=== PATIENT | male | born 1985 | race Caucasian/White ===

== ENCOUNTER → 2016-11-29 | Emergency (ER) | payer OTHER ==
[~2016-11-29] VITALS: Ht 172.7 cm; Wt 76.2 kg
[~2016-11-29] MED LIST: ISOVUE-370 76% 100ML VIAL (Q9967) As Ordered ONE; LORazepam 2 MG/ML VIAL (J2060) IV STA; NS 1,000 ML IV ONE; PRED20TA PO; SUBO8TA PO; TETANUS/DIPHTHERIA TOX ADSORB ADULT 0.5ML SYR/VIAL (90714) IM ONE; [UNRECOGNIZED DRUG - CODE] PO; ceFAZolin SOD 1 GM in D5W MINI-BAG PLUS 50 ML IV ONE
[2016-11-29 21:24] LABS: BASO % 0.6 % (0.0-1.0); EOS # 0.2 K/mm3 (0.0-0.50); EOS % 2.8 % (0.0-3.0); LARGE UNSTAINED CELL # 0.1 K/mm3 (0.0-0.4); LYMPH # 2.8 K/mm3 (1.5-4.5); LYMPH % 37.9 % (24.0-44.0); MEAN CORPUSCULAR HEMOGLOBIN 30.3 pg (27.0-33.0); MEAN CORPUSCULAR HGB CONC 35.6 g/dl (32.0-36.5); MEAN CORPUSCULAR VOLUME 85.3 fl (80.0-96.0); MONO # 0.4 K/mm3 (0.0-0.8); MONO % 5.5 % (0.0-5.0); NEUTROPHILS # 3.7 K/mm3 (1.8-7.7); NEUTROPHILS % 51.1 % (36.0-66.0); PLATELET COUNT, AUTOMATED 179 k/mm3 (150-450); RED CELL DISTRIBUTION WIDTH 12.3 % (11.5-14.5); WHITE BLOOD COUNT 7.2 K/mm3 (4.0-10.0)
[2016-11-29 21:30] LABS: INR 0.99
[2016-11-29 21:52] LABS: ANION GAP 12 MEQ/L (8-16); BLOOD UREA NITROGEN 21 MG/DL (7-18); CALCIUM LEVEL 8.5 MG/DL (8.5-10.1); CARBON DIOXIDE LEVEL 27 MEQ/L (21-32); CHLORIDE LEVEL 99 MEQ/L (98-107); GLOMERULAR FILTRATION RATE > 60.0 (>60); GLUCOSE, FASTING 110 MG/DL (70-105); POTASSIUM SERUM 3.5 MEQ/L (3.5-5.1); SODIUM LEVEL 138 MEQ/L (136-145)
--- NOTE | 2016-11-29 22:10 | REPUSA ---
CT of the cervical spine Clinical history: trauma. Technique: Multiple axial CT images were obtained through the cervical spine without administration o f contrast. Coronal and sagittal 3-D reconstructed images were also obtained. Comparison: None. Findings: The cervical vertebral bodies are in satisfactory positioning and alignment. No fractures or dislocat ions are demonstrated. The odontoid process is intact. Intervertebral disc spaces are well-maintained . There is no evidence of facet subluxation. The neural foramen appear grossly patent. The cervical c ranial junction is intact. The cervical spinal canal demonstrates normal caliber and contour without evidence of spinal stenosis. The surrounding soft tissues are within normal limits. Impression: Unremarkable CT examination of the cervical spine.
--- NOTE | 2016-11-29 22:10 | REPUSA ---
CT angiogram of the chest Clinical statement: trauma. Technique: Multiple axial CT images were obtained from the thoracic inlet through the upper abdomen a fter a bolus administration of nonionic intravenous contrast. Coronal and sagittal reconstructions we re also obtained. No comparison is available. Findings: The pulmonary arteries are well-opacified with contrast, with no intraluminal filling defec ts to suggest embolism. The thoracic aorta is unremarkable. Thyroid gland is within normal limits. Th ere is no thoracic lymphadenopathy. There are no pericardial or pleural effusions. The lungs are terence r. Limited imaging of the upper abdomen demonstrates severe diffuse low attenuation of the hepatic pa renchyma. There are no suspicious osseous lesions. Impression: 1. No evidence of pulmonary embolism. No acute intrapulmonary disease. 2. Diffuse fatty infiltration of the liver.
--- NOTE | 2016-11-29 22:20 | REPUSA ---
CT of the facial bones without contrast Clinical history: Pain, trauma. Technique: Multiple axial CT images were obtained through the facial bones and paranasal sinuses util izing 3 mm axial slices without administration of contrast. Coronal and sagittal reconstructions were also obtained. Findings: There is a left taoism a bone fracture demonstrated, with very tiny amount of pneumocephalu s. The fracture extends anterior to the internal auditory canal within the left temporal bone mild so ft tissue emphysema in the left maxillary space is noted. The visualized paranasal sinuses are clear. The osteomeatal complexes are patent bilaterally. The nasal septum is slightly deviated leftward. Th e visualized mastoid air cells are clear. The superficial soft tissues are within normal limits. Impression: Acute, nondepressed left temporal bone fracture, associated with a tiny amount of pneumoc ephalus. The fracture extends inferiorly, anterior to the internal auditory canal. The mastoid air ce lls and left carotid canal do not appear to be involved. Soft tissue emphysema is noted in the left m axillary space as well. ER physician was notified of these findings at 10:14 PM on 11/29/2016.
--- NOTE | 2016-11-29 22:20 | REPUSA ---
CT of the head Clinical history: Headache. Trauma. Technique: Multiple axial CT images were obtained through the head without administration of contrast . Findings: The ventricles and sulci are symmetric bilaterally. There is no evidence of acute hemorrhag e or infarct. There is no midline shift, mass effect, or extra-axial fluid collection. There is a carlee ear, nondepressed left temporal bone fracture noted. A tiny amount of pneumocephalus is noted in the upper left temporal bone. The fracture extends inferiorly, just anterior to the internal auditory can al. The visualized paranasal sinuses and mastoid air cells are clear. Impression: 1. Left temporal bone fracture as described. 2. No acute hemorrhage or infarct was identified. ER physician was notified of these findings at 10:14 PM on 11/29/2016.
--- NOTE | 2016-11-29 22:20 | REPUSA ---
CT of the abdomen and pelvis with contrast Clinical statement: Pain. Trauma. Technique: Multiple axial CT images were obtained from the base of the lungs through the floor of the pelvis utilizing 5 mm axial slices after administration of nonionic intravenous contrast. Coronal an d sagittal reconstructions were also obtained. No comparison is available. Findings: Chest: The visualized lung bases are clear. Abdomen: The spleen, pancreas, kidneys, gallbladder, and adrenal glands are unremarkable. There is di ffuse low attenuation of the hepatic parenchyma. The aorta is within normal limits. There is no evide nce of abdominal lymphadenopathy or ascites. Pelvis: The bowel is unremarkable, with no obstructive or inflammatory changes. The appendix is haley l. The urinary bladder is within normal limits. The other pelvic structures appear grossly intact. Th ere is no evidence of pelvic lymphadenopathy or ascites. Bones: There are no suspicious osseous abnormalities seen. Impression: No acute traumatic injury appreciated. Diffuse fatty infiltration of the liver.
[2016-11-29] MEDS: HYDROmorphone HCL 1 MG/ML SYRINGE (J1170) IV PRN ×2 (22:30→23:08)
[2016-11-29 22:45] VITALS: BP 173/93
[2016-11-29 22:57] LABS: METHADONE URINE NEGATIVE (NEGATIVE)
--- NOTE | 2016-11-30 06:20 | ECGEPIP ---
Stationary ECG Study [facility] - ED Test Date: 2016-11-29 Pat Name: STEVEN MALDONADO Department: Room: - Gender: M Database Consultant: kary : 1985 Requested By: JUANA Horvath Order Number: [id number] Reading MD: Isaias Sarmiento Measurements Intervals [place] Rate: 96 P: 5 ID: [id number] QRS: -14 QRSD: 106 T: -10 QT: 336 QTc: 425 Interpretive Statements SINUS RHYTHM MODERATE VOLTAGE CRITERIA FOR LVH, CONSIDER NORMAL VARIANT NSTTW ABNORMALITIES NOP RIORS Electronically Signed On 11-30-2016 6:20:09 EDT by Isaias Sarmiento
--- NOTE | 2016-11-30 07:33 | REP ---
AP PELVIS: 11/29/2016. Clinical history: Trauma. Comparison: Right hip 01/16/2007, CT abdomen and pelvis earlier this date. Findings: Pelvic bones show the iliac wings, acetabuli, pubic rami, symphysis pubis and hips unremarkable. SI joints, sacral ala intact. Lower lumbar spine grossly intact. Bladder partially filled with IV contrast from CT. No evidence of extravasation. Impression: 1. Negative AP pelvis. Signed by Carlos Hoff MD 11/30/2016 04:38 P
--- NOTE | 2016-11-30 07:37 | REP ---
AP PORTABLE CHEST: 11/29/2016 COMPARISON: CT chest earlier this date. PA chest with left rib series 04/25/2016. CLINICAL HISTORY: Trauma. FINDINGS: Portable semi-erect chest shows the lungs hypoinflated. There is an old healed and remodeled posterior left 7th rib fracture as seen on the left rib series in 2015. The lung hernandez show no definite infiltrate, effusion or pneumothorax. Heart and mediastinal contours are normal for this degree of inflation and portable technique. No effusion or pneumothorax. No lateral pleural thickening apical scarring. There is no free air under the diaphragm. Visualized bones without acute finding. IMPRESSION: 1. Hypoinflated chest without acute cardiopulmonary change otherwise. Signed by Carlos Hoff MD 11/30/2016 04:38 P
== END | disposition short-term general hospital (02) ==
LOC: EDUNIT# 20:33 → EDBD 20:38 → M ED 22:10
DX: S02.19XA Other fracture of base of skull, initial encounter for closed fracture (principal); G93.89 Other specified disorders of brain; V09.20XA Pedestrian injured in traffic accident involving unspecified motor vehicles, initial encounter; Y92.410 Unspecified street and highway as the place of occurrence of the external cause; Y93.51 Activity, roller skating (inline) and skateboarding; Y99.9 Unspecified external cause status
CPT/HCPCS: 70450; 70486; 71010; 71260; 72125; 72170; 74177; 80048; 80306; 81001; 82550; 82553; 85025; 85610; 85730; 90471; 90714; 93005; 93041; 96374; 96375; 99285; G0480; J0690; J1170; J2060; Q9967

== ENCOUNTER 2016-12-06 19:26 | Emergency (ER) | payer OTHER ==
[~2016-12-06] VITALS: Ht 167.6 cm; Wt 81.6 kg
[~2016-12-06 19:26] MED LIST changes: -ISOVUE-370 76% 100ML VIAL (Q9967) As Ordered ONE; -LORazepam 2 MG/ML VIAL (J2060) IV STA; -NS 1,000 ML IV ONE; -PRED20TA PO; -TETANUS/DIPHTHERIA TOX ADSORB ADULT 0.5ML SYR/VIAL (90714) IM ONE; -ceFAZolin SOD 1 GM in D5W MINI-BAG PLUS 50 ML IV ONE
--- NOTE | 2016-12-06 21:30 | REPUSA ---
CT of the head Clinical history: skull fracture, new history of Carrera's palsy. Comparison: November 29, 2016. Technique: Multiple axial CT images were obtained through the head without administration of contrast . Findings: The ventricles and sulci are symmetric bilaterally. There is no evidence of acute hemorrhag e or infarct. There is no midline shift, mass effect, or extra-axial fluid collection. The linear non displaced fracture to the left temporal bone is stable. The other osseous structures are unremarkable . The visualized paranasal sinuses and mastoid air cells are clear. Impression: No acute hemorrhage or infarct. Stable left temporal bone fracture. No other acute findin gs to explain the patient's new history of Carrera's palsy. If there is further clinical concern, MRI sh ould be considered.
[2016-12-06] MEDS ORDERED: PRED20TA PO (22:07)
[2016-12-06] MEDS ORDERED: predniSONE 20 MG TAB PO ONE (22:15)
[2016-12-06 22:22] VITALS: BP 132/68
== END 2016-12-06 22:23 | disposition home or self-care (01) ==
LOC: M ED 20:19
DX: S02.19XA Other fracture of base of skull, initial encounter for closed fracture (principal); G51.0 Bell's palsy; V49 Car occupant injured in other and unspecified transport accidents; Y92.410 Unspecified street and highway as the place of occurrence of the external cause; Y93.89 Activity, other specified; Y99.9 Unspecified external cause status

== ENCOUNTER 2019-06-07 14:27 | Emergency (ER) | payer OTHER ==
[~2019-06-07] VITALS: Ht 167.6 cm; Wt 86.9 kg
[~2019-06-07 14:27] MED LIST changes: +PRED20TA PO
[2019-06-07 15:27] VITALS: BP 151/96
== END 2019-06-07 15:29 | disposition home or self-care (01) ==
LOC: M ED 14:27
DX: S63.694A Other sprain of right ring finger, initial encounter (principal); W23.0XXA Caught, crushed, jammed, or pinched between moving objects, initial encounter; Y92.89 Other specified places as the place of occurrence of the external cause; Y99.0 Civilian activity done for income or pay; Z79.891 Long term (current) use of opiate analgesic; Z87.891 Personal history of nicotine dependence

== ENCOUNTER → 2019-07-11 | Outpatient (REF) | payer OTHER | LOC: M LAB REF 13:21 | PROVIDERS: ATTEND Physician Assistant | DX: M79.10 Myalgia, unspecified site (principal) ==

== ENCOUNTER → 2025-03-12 | Outpatient (REF) | payer OTHER ==
[2025-03-12 18:39] LABS: BASO # 0.1 10^3/uL (0.0-0.2); BASO % 1.0 % (0.0-1.0); EOS # 0.0 10^3/uL (0.0-0.5); EOS % 0.0 % (0.0-3.0); LYMPH # 2.6 10^3/uL (1.5-5.0); LYMPH % 42.4 % (24.0-44.0); MONO # 0.5 10^3/uL (0.0-0.8); MONO % 8.9 % (2.0-8.0); NEUTROPHILS # 2.9 10^3/uL (1.5-8.5); NEUTROPHILS % 47.5 % (36.0-66.0); PLATELET COUNT, AUTOMATED 195 10^3/uL (150-450)
[2025-03-12 19:13] LABS: VITAMIN B12 LEVEL 691 PG/ML (211-911)
[2025-03-12 19:14] LABS: TOTAL 25(OH) VITAMIN D 34.3 NG/ML (20.0-100.0)
[2025-03-12 19:16] LABS: FREE T4 1.34 NG/DL (0.89-1.76)
[2025-03-12 19:20] LABS: ALT/SGPT 29 U/L (7.0-40); AST/SGOT 26 U/L (<34); CALCIUM LEVEL 8.8 MG/DL (8.5-10.1); CARBON DIOXIDE LEVEL 29 MMOL/L (20-31); CHLORIDE LEVEL 101 MMOL/L (98-107); CHOLESTEROL LEVEL 180 MG/DL (<200); CHOLESTEROL RISK RATIO 4.43 (<5); CREATININE FOR GFR 0.99 MG/DL (0.70-1.30); GLOMERULAR FILTRATION RATE > 90.0 (>60); LDL CHOLESTEROL 85.2 MG/DL (<100); NON-HDL-C 139.4 MG/DL; POTASSIUM SERUM 3.9 MMOL/L (3.5-5.1); SODIUM LEVEL 142 MMOL/L (136-145); TRIGLYCERIDES LEVEL 271 MG/DL (<150)
[2025-03-12 20:02] LABS: ESTIMATED AVERAGE GLUCOSE 91.0 MG/DL (60-110)
== END ==
LOC: M SFHCLERA 13:41
DX: F41.9 Anxiety disorder, unspecified (principal); Z83.3 Family history of diabetes mellitus; R03.0 Elevated blood-pressure reading, without diagnosis of hypertension